=== PATIENT | female | born 1975 | race African-American/Black ===

== ENCOUNTER 2018-08-29 10:52 | Emergency (ER) | payer MEDICARE, MEDICAID ==
[~2018-08-29] VITALS: Ht 154.9 cm; Wt 81.0 kg
[~2018-08-29 10:52] MED LIST: DIPH25CA83; HAL5; LORA-250
[2018-08-29 10:59] VITALS: BP 130/81
[2018-08-29 18:33] LABS: CLARITY URINE CLEAR (CLEAR); COLOR URINE YELLOW (YELLOW); KETONES URINE 1+ (NEGATIVE); LEUKOCYTE ESTERASE URINE 2+ (NEGATIVE); NITRITE URINE NEGATIVE (NEGATIVE); OCCULT BLOOD URINE NEGATIVE (NEGATIVE); PH URINE 6.5 (4.5-8.0); PROTEIN URINE 1+ (NEGATIVE); SPECIFIC GRAVITY URINE 1.016 (1.005-1.030); UROBILINOGEN URINE 0.2 E.U./dL (0.2-1.0)
== END 2018-08-29 19:17 | disposition home or self-care (01) ==
LOC: ER 10:52
DX: Z13.89 Encounter for screening for other disorder (principal); I10 Essential (primary) hypertension; F20.9 Schizophrenia, unspecified
CPT/HCPCS: 99283